=== PATIENT | female | born 1995 | race Caucasian/White ===

== ENCOUNTER 2017-02-16 02:19 | Emergency (ER) | payer OTHER ==
[~2017-02-16] VITALS: Ht 167.6 cm; Wt 67.1 kg
[2017-02-16 03:35] VITALS: BP 102/85
[2017-02-16] MEDS ORDERED: TRAMADOL 50 MG50 MG PO (03:47)
== END 2017-02-16 03:56 | disposition home or self-care (01) ==
LOC: ER 02:19
DX: S00.83XA Contusion of other part of head, initial encounter (principal); Y04.8XXA Assault by other bodily force, initial encounter; Y93.89 Activity, other specified; Y92.89 Other specified places as the place of occurrence of the external cause; Y99.8 Other external cause status

== ENCOUNTER 2017-06-10 20:29 | Emergency (ER) | payer OTHER ==
[~2017-06-10] VITALS: Ht 167.6 cm; Wt 59.0 kg
[~2017-06-10 20:29] MED LIST: TRAMADOL 50 MG50 MG PO
[2017-06-10] MEDS ORDERED: NOHOMEMEDICATIONS (20:37)
[2017-06-10] MEDS ORDERED: MOBIC15 MG PO (21:56)
[2017-06-10 22:01] VITALS: BP 115/68
== END 2017-06-10 22:03 | disposition home or self-care (01) ==
LOC: ER 20:29
DX: S30.1XXA Contusion of abdominal wall, initial encounter (principal); M94.0 Chondrocostal junction syndrome [Tietze]; Y04.8XXA Assault by other bodily force, initial encounter; Y93.89 Activity, other specified; Y92.89 Other specified places as the place of occurrence of the external cause; Y99.8 Other external cause status